=== PATIENT | female | born 1975 | race Caucasian/White ===

== ENCOUNTER → 2016-09-05 | Outpatient (CLI) | payer OTHER ==
[~2016-09-05] MED LIST: AMT25 PO; GADAVIST IV PRN; GLAT1INJ IM; OMEP40CA41 PO; TRAM-10 PO
--- NOTE | 2016-09-05 15:53 | DIAGNOSTIC IMAGING REPORT ---
BRAIN COMBO FOR MS CLINICAL HISTORY: Multiple sclerosis. COMPARISON STUDY: MRI of the brain August 12, 2015. TECHNIQUE: Utilizing 1.5 Shanelle magnet, multiplanar, multiecho imaging of the brain was performed pre and postcontrast administration according to the multiple sclerosis protocol. Injection of 6.3 cc of Gadavist IV was uneventful FINDINGS: There are no areas of restricted diffusion. No acute intracranial hemorrhage, midline shift or mass effect is present. Ventricular system is normal. Basilar cisterns are patent. There are no extra-axial collections. Flow-voids for the major intracranial vessels are present. Numerous white matter T2 hyperintense foci, predominantly within a periventricular distribution, are similar to exam of August 12, 2015. No enhancement is identified to suggest active demyelination. No new plaques are identified on this exam. Calvarial signal is maintained. There is no intracranial mass. Orbits are unremarkable. IMPRESSION: 1. No acute intracranial finding. 2. No change in numerous white matter T2 hyperintense foci which suggest multiple sclerosis. No evidence for active demyelination. No significant change since prior MRI of August 12, 2015. Electronically signed by: Sea Vo M.D. 09/05/2016 3:52 PM Dictated Date/Time: 09/05/2016 3:45 PM
== END | disposition home or self-care (01) ==
LOC: C.MRI 14:22
PROVIDERS: ATTEND Psychiatry & Neurology Neurology
DX: G35 Multiple sclerosis (principal)

== ENCOUNTER → 2017-07-30 | Outpatient (CLI) | payer OTHER ==
[~2017-07-30] MED LIST changes: -GADAVIST IV PRN
[2017-07-30 18:15] LABS: BASO % 0.2 %; BASO ABS # 0.01 K/uL (0-0.2); EOS % 2.5 %; EOS ABS # 0.14 K/uL (0-0.5); HEMATOCRIT 44.1 % (37-47); HEMOGLOBIN 15.2 g/dL (12.0-16.0); IG# 0.01 K/uL (0.00-0.02); LYMPH % 29.9 %; MEAN CELL VOLUME 86.8 fL (80-100); MEAN CORPUSCULAR HEMOGLOBIN 29.9 pg (25-34); MEAN CORPUSCULAR HGB CONC 34.5 g/dl (32-36); MEAN PLATELET VOLUME 10.6 fL (7.4-10.4); MONO ABS # 0.34 K/uL (0.11-0.59); NEUT % 61.2 %; NEUT ABS # 3.49 K/uL (1.4-6.5); PLATELET COUNT 222 K/uL (130-400); RED CELL DISTRIBUTION WIDTH CV 12.7 % (11.5-14.5); RED CELL DISTRIBUTION WIDTH SD 40.7 fL (36.4-46.3); WHITE BLOOD COUNT 5.69 K/uL (4.8-10.8)
[2017-07-30 18:28] LABS: ALT/SGPT 41 U/L (12-78); AST/SGOT 23 U/L (15-37); BLOOD UREA NITROGEN 15 mg/dl (7-18); CALCIUM 8.5 mg/dl (8.5-10.1); CARBON DIOXIDE 29 mmol/L (21-32); CREATININE 0.93 mg/dl (0.60-1.20); GLUCOSE 91 mg/dl (70-99); POTASSIUM 3.4 mmol/L (3.5-5.1); SODIUM 137 mmol/L (136-145)
[2017-07-30 18:39] LABS: ALKALINE PHOSPHATASE 65 U/L (45-117); TOTAL PROTEIN 7.5 gm/dl (6.4-8.2)
== END | disposition home or self-care (01) ==
LOC: C.LABMFLN 13:42
PROVIDERS: ATTEND Family Medicine
DX: G35 Multiple sclerosis (principal)

== ENCOUNTER → 2017-08-06 | Outpatient (CLI) | payer OTHER ==
[~2017-08-06] MED LIST changes: +GADAVIST IV PRN
--- NOTE | 2017-08-06 14:17 | DIAGNOSTIC IMAGING REPORT ---
BRAIN COMBO FOR MS HISTORY: Multiple sclerosis G35 Multiple sclerosis TECHNIQUE: Multiplanar multisequence MRI of the brain was performed both before and after the intravenous administration of contrast. COMPARISON STUDY: 09/05/2016 FINDINGS: Unchanged distribution and number of foci of increased signal. These are identified within the periventricular deep white matter regions primarily and also within the subcortical regions. There are unchanged in size as well as number. They show no significant postcontrast enhancement. The ventricular system remains midline. Sella and parasellar regions are unremarkable. IMPRESSION: 1. Stable exam with no change compared to the prior study. 2. The multiple foci of increased signal throughout both cerebral hemispheres are unchanged. 3. No evidence for abnormal postcontrast enhancement. The above report was generated using voice recognition software. It may contain grammatical, syntax or spelling errors. Electronically signed by: Erik Swann M.D. 08/06/2017 2:15 PM Dictated Date/Time: 08/06/2017 2:08 PM
== END | disposition home or self-care (01) ==
LOC: C.MRI 12:45
PROVIDERS: ATTEND Physician Assistant
DX: G35 Multiple sclerosis (principal)